=== PATIENT | female | born 1945 | race African-American/Black ===

== ENCOUNTER 2024-07-04 14:05 | Inpatient (IN) | payer OTHER, BC ==
[2024-07-04 15:44] LABS: ABSOLUTE IMMATURE GRANULOCYTES 0.02 x10^3/uL (0.0-0.031); BASOPHILS # 0.04 x10^3/uL (0.01-0.08); EOSINOPHILS # 0.07 x10^3/uL (0.04-0.36); HEMATOCRIT 34.8 % (34.1-44.9); MCHC 31.6 g/dl (32.2-35.5); MEAN CELL VOLUME 86.1 fl (79.4-94.8); MEAN PLT VOLUME 11.3 fl (9.4-12.3); MONOCYTE # 0.67 x10^3/uL (0.24-0.86); MONOCYTE % 9.8 % (4.7-12.5); PLATELET COUNT 213 x10^3/uL (182-369); RDW 14.2 % (12.4-16.6)
[2024-07-04 16:00] LABS: POTASSIUM 4.7 mmol/L (3.5-5.1)
[2024-07-04 16:04] LABS: ALBUMIN 3.2 g/dl (3.4-5.0); BLOOD UREA NITROGEN 23.1 mg/dL (7-18); CALCIUM 8.4 mg/dL (8.5-10.1); MAGNESIUM 2.2 mg/dL (1.8-2.4)
[2024-07-04 16:07] LABS: CREATININE 1.1 mg/dL (0.55-1.3)
[2024-07-04 16:09] LABS: BILIRUBIN,TOTAL 0.4 mg/dL (0.2-1); TOT PROT 6.6 g/dl (6.4-8.2)
[2024-07-04] MEDS: MIRTAZAPINE 15 MG TABLET (FP) PO SCH (21:58)
[2024-07-04] MEDS: metoPROLOL SUCCINATE 25 MG TAB.SR.24H (FP) PO ONE (21:58)
[2024-07-05] MEDS: GABAPENTIN 100 MG CAPSULE PO SCH (08:26)
[2024-07-05] MEDS: ASPIRIN COATED 81 MG TABLET.EC PO SCH (09:09)
[2024-07-05] MEDS: ENOXAPARIN NA (PORCINE) 40 MG/0.4 ML DISP.SYRIN SQ SCH (09:09)
[2024-07-05] MEDS: FAMOTIDINE 20 MG TABLET PO SCH (09:09)
[2024-07-05] MEDS: CALCIUM 500MG/VIT-D 200 UNITS COMBO TABLET (FP) PO SCH (09:09)
[2024-07-05] MEDS: FERROUS GLUCONATE 324 MG TAB (FP) PO SCH (09:09)
[2024-07-05] MEDS: metoPROLOL SUCCINATE 25 MG TAB.SR.24H (FP) PO SCH (09:09)
[2024-07-05 10:28] LABS: HEMATOCRIT 35.2 % (34.1-44.9); HEMOGLOBIN 10.9 g/dL (11.2-15.7); MEAN CELL VOLUME 85.9 fl (79.4-94.8); RDW 14.2 % (12.4-16.6)
[2024-07-05 11:43] LABS: POTASSIUM 4.4 mmol/L (3.5-5.1)
[2024-07-05 11:44] LABS: CALCIUM 8.5 mg/dL (8.5-10.1)
[2024-07-05 11:45] LABS: BLOOD UREA NITROGEN 22.9 mg/dL (7-18); MAGNESIUM 2.2 mg/dL (1.8-2.4)
[2024-07-05 11:48] LABS: CREATININE 0.9 mg/dL (0.55-1.3); PHOSPHOROUS 3.1 mg/dL (2.5-4.9)
[2024-07-05 14:22] LABS: BILIRUBIN,DIRECT 0.1 mg/dL (0.0-0.2)
[2024-07-05 14:23] LABS: ALBUMIN 3.1 g/dl (3.4-5.0)
[2024-07-05 14:25] LABS: BILIRUBIN,TOTAL 0.3 mg/dL (0.2-1); TOT PROT 6.3 g/dl (6.4-8.2)
[2024-07-05 18:28] LABS: MEAN PLT VOLUME 12.4 fl (9.4-12.3); PLATELET COUNT 235 x10^3/uL (182-369)
[2024-07-06 08:02] LABS: HEMOGLOBIN 12.4 g/dL (11.2-15.7); MEAN CELL VOLUME 85.8 fl (79.4-94.8); MEAN PLT VOLUME 11.3 fl (9.4-12.3); PLATELET COUNT 256 x10^3/uL (182-369); RDW 14.4 % (12.4-16.6)
[2024-07-06 08:20] LABS: POTASSIUM 4.5 mmol/L (3.5-5.1)
[2024-07-06 08:37] LABS: CALCIUM 9.1 mg/dL (8.5-10.1)
[2024-07-06 08:38] LABS: ALBUMIN 3.6 g/dl (3.4-5.0)
[2024-07-06 08:40] LABS: BILIRUBIN,TOTAL 0.4 mg/dL (0.2-1)
[2024-07-06 08:41] LABS: CREATININE 0.7 mg/dL (0.55-1.3)
[2024-07-06] MEDS: PANTOPRAZOLE 40 MG TABLET PO SCH (12:14)
[2024-07-06 15:15] VITALS: BMI 18.8
[2024-07-06] MEDS: POLYETHYLENE GLYCOL (HEALTHYLAX) 3350 17 GM PACKET PO SCH (16:33)
[2024-07-06 21:33] LABS: HCV DIAGNOSTIC IN-HOUSE W/RFLX NON-REACTIVE (NONREACTIVE)
[2024-07-07 08:09] LABS: HEMATOCRIT 35.6 % (34.1-44.9); MCHC 30.9 g/dl (32.2-35.5); MEAN CELL VOLUME 85.6 fl (79.4-94.8); MEAN PLT VOLUME 11.7 fl (9.4-12.3); PLATELET COUNT 237 x10^3/uL (182-369); RDW 14.6 % (12.4-16.6)
[2024-07-07 08:29] LABS: POTASSIUM 4.6 mmol/L (3.5-5.1)
[2024-07-07 08:40] LABS: CALCIUM 8.7 mg/dL (8.5-10.1)
[2024-07-07 08:41] LABS: BLOOD UREA NITROGEN 21.2 mg/dL (7-18)
[2024-07-07 08:44] LABS: BILIRUBIN,TOTAL 0.4 mg/dL (0.2-1); CREATININE 0.6 mg/dL (0.55-1.3)
[2024-07-07 08:45] LABS: TOT PROT 6.1 g/dl (6.4-8.2)
[2024-07-07 08:47] LABS: ALBUMIN 2.9 g/dl (3.4-5.0)
[2024-07-07 15:26] VITALS: BP 121/63; PULSE 73; RESP 18; TEMP 98.7
== END 2024-07-07 17:30 | DRG 303 ==
LOC: JER 14:05 → JERBED 15:53 → OBSVTOIN 15:53 → J7W 20:47
PROVIDERS: ADMIT Internal Medicine; ATTEND Physician Assistant
DX: I25.10 Atherosclerotic heart disease of native coronary artery without angina pectoris (principal); R42 Dizziness and giddiness; I11.0 Hypertensive heart disease with heart failure; F03.90 Unspecified dementia, unspecified severity, without behavioral disturbance, psychotic disturbance, mood disturbance, and anxiety; R74.01 Elevation of levels of liver transaminase levels; I50.9 Heart failure, unspecified; R00.1 Bradycardia, unspecified; N28.1 Cyst of kidney, acquired; R07.9 Chest pain, unspecified
CPT/HCPCS: 36415; 71045-TC-FY; 74183-TC; 76705-TC; 80048; 80053; 80076; 82550; 82607; 82746; 82962; 83735; 84100; 84443; 84484; 85025; 85027; 86704; 86708; 86803; 87340; 87517; 93005; 93010; 97116-GP; 97161-GP; 99285-25